=== PATIENT | female | born 1970 | race Asian ===

== ENCOUNTER 2017-09-09 11:31 | Emergency (ER) | END 2017-09-09 13:35 | disposition home or self-care (01) ==

== ENCOUNTER 2017-11-04 17:41 | Emergency (ER) | END 2017-11-04 19:48 | disposition home or self-care (01) ==

== ENCOUNTER → 2019-04-24 | Outpatient (CLI) | payer MEDICARE, OTHER ==
[~2019-04-24] MED LIST: ARIP5TAB14 PO; BENZ-6 PO; D-ME473S2 PO; LIT300 PO; MECL-77 PO; PRED20TA PO; RTPRO NEB
== END | disposition home or self-care (01) ==
LOC: U/S 15:00
PROVIDERS: ATTEND Obstetrics & Gynecology
DX: R19.00 Intra-abdominal and pelvic swelling, mass and lump, unspecified site (principal)
CPT/HCPCS: 76830; 76856